=== PATIENT | female | born 1985 | race Caucasian/White ===

== ENCOUNTER → 2019-03-05 | Outpatient (CLI) | payer OTHER ==
--- NOTE | 2019-03-05 19:20 | RADIOLOGY REPORT (SQ) ---
EXAM DESCRIPTION: U/S NON-OB PELVIS LTD W/O DOP COMPLETED DATE/TIME: 03/05/2019 6:40 pm REASON FOR STUDY: M79.89 OTHER SPECIFIED SOFT TISSUE DISORDERS M79.89 OTHER SPECIFIED SOFT TISSUE D ISORDERS COMPARISON: None. TECHNIQUE: Dynamic and static grayscale images acquired of the pelvis via transabdominal approach an d recorded on PACS. Additional selected color Doppler and spectral images recorded. LIMITATIONS: None. FINDINGS: The area of concern on the right buttock was scanned. No definable mass is seen. No lipo ma is seen. IMPRESSION: No definable mass is seen in the area of concern. TECHNICAL DOCUMENTATION: JOB ID: [id number] [employer] All Rights Reserved Rev-12/07 Reading location - IP/workstation name: [email or web address]
== END ==
LOC: RAD 18:02
PROVIDERS: ATTEND Physician Assistant
DX: M79.89 Other specified soft tissue disorders (principal)
CPT/HCPCS: 76857

== ENCOUNTER 2019-03-17 09:55 | Day surgery (SDC) | payer OTHER ==
[~2019-03-17 09:55] MED LIST: PROPOFOL INJ 200 MG/20 ML VIAL IV ONE
[2019-03-17] MEDS ORDERED: PROPOFOL INJ 200 MG/20 ML VIAL IV ONE (10:55)
[2019-03-17 11:27] VITALS: BP 107/74
--- NOTE | 2019-03-17 12:57 | Operative Report ---
Operative Report DATE OF SURGERY: 03/17/19 Operative Report: The risks, benefits and alternatives of the procedure including the risk of bleeding, perforation requiring surgery have been explained to the patient in detail and informed consent has been obtained. The patient is placed in the left, lateral decubital position. Timeout was called. Propofol medication is administered. Rectal examination is done which did not reveal any masses, tears or fissures. An Olympus videoscope was introduced into the patient's rectum. The scope was then carefully advanced all the way to the cecum. The cecum was identified by the usual anatomical landmarks including the ileocecal valve as well as the appendiceal office. Photodocumentation is obtained. The scope was then sequentially pulled back via the various segments of the colon including the ascending colon, hepatic flexure, transverse colon, splenic flexure, d escending colon finally to the rectosigmoid portions of the colon. Retroflexion maneuvers performed. PREOPERATIVE DIAGNOSIS: Change in bowel habits POSTOPERATIVE DIAGNOSIS: Right side colon Inflammation status post biopsy rule out lymphocytic, collagenous colitis. Incidental finding of a rectal polyp there is having to be removed via snare polypectomy and retrieved. Internal hemorrhoids OPERATION: Colonoscopy with snare polypectomy. Colonoscopy with biopsy SURGEON: ZENOBIA MOYER ANESTHESIA: LMAC TISSUE REMOVED OR ALTERED: As noted above COMPLICATIONS: None. ESTIMATED BLOOD LOSS: None. INTRAOPERATIVE FINDINGS: As noted above. PROCEDURE: Patient tolerated the procedure well. No immediate postprocedure complications are noted. Patient is discharged in good condition. Discharge date 03/17/2019. Discharge diet: Regular. Discharge activity: Regular. 2 to 3-week follow-up to discuss findings. Patient is instructed to call the office or proceed to the emergency room should there be any further problems or questions. 3-year surveillance colonoscopy.
== END 2019-03-17 11:35 | disposition home or self-care (01) ==
LOC: END 09:55
PROVIDERS: ATTEND Internal Medicine Gastroenterology
DX: K52.9 Noninfective gastroenteritis and colitis, unspecified (principal); D12.8 Benign neoplasm of rectum; K64.8 Other hemorrhoids; I10 Essential (primary) hypertension; Z79.899 Other long term (current) drug therapy
CPT/HCPCS: 45380; 45385; 88305 ×2; 00811; J2704; 811